=== PATIENT | female | born 1985 | race African-American/Black ===

== ENCOUNTER 2023-05-30 09:08 | Outpatient (CLI) | payer OTHER ==
--- NOTE | 2023-05-30 17:34 | XRAY Report ---
PROCEDURE: Ribs 2 View RT INDICATIONS: FLANK PAIN RIGHT, BACK PAIN THORACIC REGION TECHNIQUE: 2 views of the right ribs were acquired. COMPARISON: None. FINDINGS: Surgical changes and devices: None. Bones and chest wall: No fractures or dislocations. No suspicious bony lesions. Overlying soft tis sues appear unremarkable. Lungs and pleura: The visualized lung appears clear. No pleural effusions or pneumothorax are visib le. IMPRESSION: No visualized acute fracture or dislocation. However, occult injury cannot be excluded. Recommend flakito rt interval imaging follow-up in 7-10 days as clinically indicated for additional evaluation. Reviewed by: Stephanie Stevens MD on 05/30/2023 5:33 PM PDT Approved by: Stephanie Stevens MD on 05/30/2023 5:33 PM PDT Station ID: [id number]
--- NOTE | 2023-05-30 17:35 | XRAY Report ---
PROCEDURE: ThoracoLumbar 2 View INDICATIONS: THORACIC REGION PAIN TECHNIQUE: 2 views acquired of the thoracolumbar spine. COMPARISON: None FINDINGS: Bones: No acute fractures or dislocations. Visualized inferior ribs appear intact. No suspicious b juan lesions. Minimal disc and foraminal narrowing at L5-S1. Soft tissues: No suspicious soft tissue calcifications. IMPRESSION: Early degenerative changes at L5-S1. Reviewed by: Stephanie Stevens MD on 05/30/2023 5:33 PM PDT Approved by: Stephanie Stevens MD on 05/30/2023 5:33 PM PDT Station ID: [id number]
== END 2023-05-30 09:09 | disposition home or self-care (01) ==
LOC: DI 09:08
PROVIDERS: ATTEND Family Medicine
DX: M47.817 Spondylosis without myelopathy or radiculopathy, lumbosacral region (principal); R10.9 Unspecified abdominal pain